=== PATIENT | male | born 1990 | race Hispanic/Latino ===

== ENCOUNTER 2023-08-19 16:46 | Emergency (ER) | payer SELFPAY ==
[~2023-08-19] VITALS: Ht 160 cm; Wt 69.0 kg
[~2023-08-19 16:46] MED LIST: (None)3.5 GM OP; CYCLOBENZAPR10 MG PO; FLEXERIL PO; GENTAMICIN15 ML/BTL OP; NAPROSYN500 MG PO; NO; ULTRAM50 M1 PO; ZPAK PO
[2023-08-19] MEDS ORDERED: CORTISPORIN OTI10 M2 AD (18:47)
== END 2023-08-19 19:28 | disposition home or self-care (01) | DRG 156 ==
LOC: ED 16:46
PROC: 09C3XZZ Extirpation of Matter from Right External Auditory Canal, External Approach (ICD-10-PCS; principal; 2023-08-19)
DX: T16.1XXA Foreign body in right ear, initial encounter (principal); F17.200 Nicotine dependence, unspecified, uncomplicated; W44.F4XA Insect entering into or through a natural orifice, initial encounter

== ENCOUNTER 2024-04-23 17:38 | Emergency (ER) | payer SELFPAY ==
[2024-04-23] VITALS (11 sets, daily range): BP systolic 119–147; BP diastolic 62–98
[~2024-04-23] VITALS: Ht 160 cm; Wt 86.1 kg
[~2024-04-23 17:38] MED LIST changes: +CORTISPORIN OTI10 M2 AD
[2024-04-23] MEDS ORDERED: ONDANSETRON HCl 4 MG/2 ML SDV IV ONE (17:45)
[2024-04-23] MEDS ORDERED: SODIUM CHLORIDE 0.9% 1,000 ML IV ONE (17:45)
[2024-04-23] MEDS ORDERED: KETOROLAC TROMETHAMINE 30 MG/ML SDV IV ONE (17:45)
[2024-04-23 18:05] LABS: URINE BLOOD DIPSTICK Large (NEGATIVE); URINE COLOR Yellow; URINE GLUCOSE - DIPSTICK Negative (NEGATIVE); URINE KETONE Trace mg/dL (NEGATIVE); URINE LEUK ESTERASE Negative (NEGATIVE); URINE NITRITE - DIPSTICK Negative (Negative); URINE PH 5.5 (4.5-8.0); URINE PROTEIN - DIPSTICK 30 mg/dL (NEG-TRACE); URINE SPECIFIC GRAVITY >=1.030; URINE UROBILINOGEN - DIPSTICK 0.2 E.U./dL (0.2)
[2024-04-23 18:06] LABS: BASO% 0.3 % (0-3); EOS% 0.2 % (0-8); HEMATOCRIT 44.3 % (39.0-50.0); HEMOGLOBIN 14.8 g/dl (14.0-18.0); IMMATURE GRANULOCYTES 0.5 % (0.0-5.0); LYMPH% 10.7 % (15-41); MEAN CELL VOLUME 90.2 fL CALC (80.0-100.0); MEAN CORPUSCULAR HGB 30.1 pG CALC (26.0-32.0); MEAN CORPUSCULAR HGB CONC 33.4 g/dL CAL (32.0-36.0); MONO% 5.6 % (2-13); NEUT# 14.66 thou/uL (1.82-7.42); NEUT% 82.7 % (42-76); RED BLOOD COUNT 4.91 mill/uL (4.70-6.10)
[2024-04-23 18:10] LABS: URINE MUCUS MANY hpf (NONE-FEW); URINE WBC 0-2 WBC/hpf (0-5)
[2024-04-23 18:15] LABS: ALBUMIN 5.2 g/dL (3.2-5.0); BILIRUBIN, TOTAL 0.5 mg/dL (0.2-1.3); CREATININE 1.1 mg/dL (0.7-1.3); POTASSIUM 4.1 mmol/l (3.5-5.1); TOTAL PROTEIN 9.5 g/dL (6.3-8.2)
[2024-04-23] MEDS ORDERED: PIPERACILLIN Sodium-Tazobactam 3.375 GM in SODIUM CHLORIDE 0.9% 100 ML IV ONE (18:55)
[2024-04-23] MEDS ORDERED: ZOFRAN4 MG/TAB PO (20:12)
[2024-04-23] MEDS ORDERED: TRAMADOL HYDROC50 M1 PO (20:12)
== END 2024-04-23 20:30 | disposition home or self-care (01) | DRG 392 ==
LOC: ED 17:38
PROVIDERS: Nurse Practitioner
DX: R10.31 Right lower quadrant pain (principal); F17.200 Nicotine dependence, unspecified, uncomplicated
CPT/HCPCS: Q9967